=== PATIENT | female | born 1950 | race Caucasian/White ===

== ENCOUNTER 2019-10-31 20:09 | Inpatient (IN) | payer MEDICARE, OTHER ==
[~2019-10-31 20:09] MED LIST: Iopamidol-370 76% 500 ML 1 ML ONE
[2019-10-31 21:17] LABS: #Lymphocytes 1.1 thou/uL (1.20-3.40); #Monocytes 0.9 thou/uL (0.11-0.59); #Neutrophils 13.5 thou/uL (1.40-6.50); %Eosinophils 0.1 % (0.0-10.0); %Lymphocytes 6.8 % (21.0-51.0); %Monocytes 5.8 % (0.0-10.0); %Neutrophils 87.3 % (42.0-75.0); Hemoglobin 10.6 g/dL (12.0-16.0); Mean Corpuscular HGB CONC 33.1 g/dL (32.0-36.0); Mean Corpuscular Hemoglobin 28.8 pg (27.0-31.0); Mean Platelet Volume 6.4 fL (7.4-10.4); Platelet Count 673 thou/uL (130-400); RBC Distribution Width 15.7 % (11.5-14.5); Red Blood Cell (RBC) Count 3.67 mill/uL (4.20-5.40); White Blood Cell (WBC) Count 15.4 thou/uL (4.8-10.8)
[2019-10-31 21:35] LABS: ALT (SGPT) 7 U/L (8-55); AST (SGOT) 14 U/L (5-34); Albumin 2.5 g/dL (3.4-4.8); Alkaline Phosphatase 110 U/L (40-110); Anion Gap 15 mmol/L (10-20); BUN (Urea Nitrogen) 12 mg/dL (9.8-20.1); Bilirubin, Total 0.5 mg/dL (0.2-1.2); CK (CPK) 19 U/L (29-168); Calc. Creatinine Clearance 0 mL/min (70-130); Calcium 7.9 mg/dL (7.8-10.44); Carbon Dioxide 24 mmol/L (23-31); Chloride 99 mmol/L (98-107); Estimated GFR-MDRD 87; Globulin 3.2 g/dL (2.4-3.5); Glucose 100 mg/dL (83-110); Lipase 12 U/L (8-78); Magnesium 1.5 mg/dL (1.6-2.6); Protein, Total 5.7 g/dL (6.0-8.3); Sodium 135 mmol/L (136-145)
[2019-10-31 21:41] LABS: Potassium 2.6 mmol/L (3.5-5.1)
--- NOTE | 2019-10-31 21:45 | RAD ---
PORTABLE CHEST 10/31/19 PROVIDED CLINICAL HISTORY: Cough. FINDINGS: Cardiac and mediastinal silhouette is within normal limits. Conspicuous emphysematous changes are see n. Blunting of the costophrenic angles may reflect pleural fluid or could be blunting on the basis o f lung hyperinflation. Parenchymal opacities are seen in the right perihilar and right infrahilar reg ions suspicious for pneumonia. There is no evidence for pneumothorax. IMPRESSION: 1. Right perihilar and infrahilar parenchymal opacities suspicious for pneumonia. Radiographic f ollow-up is recommended. 2. Conspicuous chronic obstructive change. 3. Possible bilateral pleural fluid versus flattening of the diaphragms related to hyperinflatio n. POS: [facility]
[2019-10-31] MEDS ORDERED: Potassium Chloride 20 MEQ TAB ONE (21:52)
[2019-10-31] MEDS ORDERED: Cefepime 2 GM VIAL ONE (21:52)
[2019-10-31 21:55] LABS: CKMB 0.6 ng/mL (0-6.6)
[2019-10-31] MEDS ORDERED: Magnesium 2 GM/50 ML BAG (IN WATER) ONE (23:11)
[2019-10-31] MEDS ORDERED: Electrolyte Replacement Protoc 1 EACH EACH FS SCH (23:45)
[2019-10-31] MEDS ORDERED: Guaifenesin DM 100-10/5 ML UDCUP PO PRN (23:49)
[2019-10-31] MEDS ORDERED: Labetalol HCl 100 MG/20 ML VIAL SLOW IVP PRN (23:49)
[2019-10-31] MEDS ORDERED: hydrALAZINE 20 MG/ML VIAL SLOW IVP PRN (23:49)
[2019-10-31] MEDS ORDERED: HYDROcodone/Acetaminophen 5/325 mg Tablet PO PRN (23:49)
[2019-10-31] MEDS ORDERED: cloNIDine 0.1 MG TAB PO PRN (23:49)
[2019-10-31] MEDS ORDERED: Promethazine HCl 12.5 MG in Sodium Chloride 0.9% 50 ML IVPB PRN (23:49)
--- NOTE | 2019-10-31 23:51 | PDOC.HHP ---
Hospitalist HPI - History of Present Illness Shortness of breath, cough History of Present Illness: Patient is a 69 year old female with PMH COPD brought to ED with son who reported patient not eating well, tired, persistent cough. On my interview, patient minimizes and states she always has cough and shortness of breath, but perhaps it is a bit worse recently. She does admit to lost appetite, change in s ense of taste and smell, some wheezing which is new, nausea. She had a fall a few months ago and was in [facility]. Denies fevers chills, no recent COVID contacts, no chest pain or palpitations. She smokes half a pack a day cigarettes. In ED, tni indeterminate, EKG without acute changes, CXR concerning for R sided opacities and pneumonia w/ chronic obstructive change, possible bilateral pneural fluid. magnesium/K low, WBC 15, given broad spectrum abx and admitted for community aquired pneumonia. Hospitalist ROS - Review of Systems Constitutional: denies: fever, chills, sweats, weakness, malaise, other Eyes: denies: pain, vision change, conjunctivae inflammation, eyelid inflammation, redness, other ENT: denies: ear pain, ear discharge, nose pain, nose discharge, nose c ongestion, mouth pain, mouth swelling, throat pain, throat swelling, other Respiratory: reports: cough, shortness of breath, wheezing. denies: dry, hemoptysis, SOB with excertion, pleuritic pain, sputum, other Cardiovascular: denies: chest pain, palpitations, orthopnea, paroxysmal noc. dyspnea, edema, light headedness, other Gastrointestinal: reports: nausea. denies: vomiting, abdominal pain, diarrhea, constipation, melena, hematochezia, other Genitourinary: denies: dysuria, frequency, incontinence, hematuria, retention, other Musculoskeletal: denies: neck pain, shoulder pain, arm pain, back pain, hand pain, leg pain, foot pain, other Skin: denies: rash, lesions, yesy, bruising, other Neurological: denies: weakness, numbness, incoordination, change in speech, confusion, seizures, other All other systems reviewed; all pertinent +/- noted in HPI/Subj - Medication Medications: none Hospitalist History - Past Medical History Other Medical History: copd, anxiety - Past Surgical History Past Surgical History: reports: Tubal Ligation Other Surgical History: lumpectomy, tubal ligation - Family History Family History: reports: no pertinent history - Social History Smoking Status: Current every day smoker Alcohol: reports: None Drugs: reports: none - Exam General Appearance: NAD, awake alert Eye: PERRL, anicteric sclera ENT: normocephalic atraumatic, no oropharyngeal lesions, moist mucosa Neck: supple, symmetric, no JVD, no thyromegaly, no lymphadenopathy, no carotid bruit Heart: RRR, no murmur, no gallops, no rubs, normal peripheral pulses Respiratory: CTAB, no rales, no ronchi, normal chest expansion, no tachypnea, normal percussion, wheezes Gastrointestinal: soft, non-tender, non-distended, normal bowel sounds, no palpable masses, no hepatomegaly, no splenomegaly, no bruit Extremities: no cyanosis, no clubbing, no edema Skin: normal turgor, no lesions, no rashes Neurological: cranial nerve grossly intact, normal sensation to touch, no weakness, no focal deficits, no new deficit Musculoskeletal: normal tone, normal strength, no muscle wasting Psychiatric: normal affect, normal behavior, A&O x 3 Hospitalist Results - Labs Result Diagrams: 10/31/19 20:55 10/31/19 20:55 Lab results: WBC 15.4 thou/uL (4.8-10.8) H 10/31/19 20:55 Hgb 10.6 g/dL (12.0-16.0) L 10/31/19 20:55 Hct 31.9 % (36.0-47.0) L 10/31/19 20:55 MCV 87.0 fL (78.0-98.0) 10/31/19 20:55 Plt Count 673 thou/uL (130-400) H 10/31/19 20:55 Neutrophils % 87.3 % (42.0-75.0) H 10/31/19 20:55 Sodium 135 mmol/L (136-145) L 10/31/19 20:55 Potassium 2.6 mmol/L (3.5-5.1) L* 10/31/19 20:55 Chloride 99 mmol/L (98-107) 10/31/19 20:55 Carbon Dioxide 24 mmol/L (23-31) 10/31/19 20:55 BUN 12 mg/dL (9.8-20.1) 10/31/19 20:55 Creatinine 0.67 mg/dL (0.6-1.1) 10/31/19 20:55 Glucose 100 mg/dL (83-110) 10/31/19 20:55 Lactic Acid 1.6 mmol/L (0.5-2.2) 10/31/19 21:05 Calcium 7.9 mg/dL (7.8-10.44) 10/31/19 20:55 Total Bilirubin 0.5 mg/dL (0.2-1.2) 10/31/19 20:55 AST 14 U/L (5-34) 10/31/19 20:55 ALT 7 U/L (8-55) L 10/31/19 20:55 Alkaline Phosphatase 110 U/L (40-110) 10/31/19 20:55 Creatine Kinase 19 U/L (29-168) L 10/31/19 20:55 CK-MB (CK-2) 0.6 ng/mL (0-6.6) 10/31/19 20:55 Troponin I 0.029 ng/mL (< 0.028) H 10/31/19 20:55 B-Natriuretic Peptide 253.2 pg/mL (0-100) H 10/31/19 20:55 Serum Total Protein 5.7 g/dL (6.0-8.3) L 10/31/19 20:55 Albumin 2.5 g/dL (3.4-4.8) L 10/31/19 20:55 Lipase 12 U/L (8-78) 10/31/19 20:55 Additional comment: VITAL SIGNS Kathy Nov 01, 2019 01:56 LACEY Marc, Carolyn BP: 151/72 Pulse: 85 Resp: 19 Temp: 98.5 (Oral) Pain: 5 O2 sat: 94 on (Room Air) Time: 11/01/2019 01:56. Ed documents, labs, imaging reports reviewed Hospitalist H&P A/P - Plan Plan: Patient is a 69 year old female with PMH COPD brought to ED with son who reported patient not eating well, tired, persistent cough. # community acquired pneumonia # COPD exacerbation # sepsis secondary to pneumonia SOB, cough, wheezing, lost appetite, change in sense of taste and smell, nausea. She had a fall a few months ago and was in [facility]. Denies fevers chills, no recent COVID contacts, no chest pain or palpitations. She smokes half a pack a day cigarettes. In ED, tni indeterminate, EKG without acute changes, CXR concerning for R sided opacities and pneumonia w/ chronic obstructive change, possible bilateral pneural fluid. magnesium/K low, WBC 15, given broad spectrum abx and admitted for community aquired pneumonia. - admit to floor - azithromycin/ceftriaxone - nicotine patch - steroids - scheduled/PRN nebs # indeterminate troponin - mild, possible related to sepsis, no acute EKG findings, trend TnI # hypokalemia # hypomagnisemia - replacement parameters # DVT/GI ppx
[2019-11-01 00:43] LABS: Troponin I 0.029 ng/mL (< 0.028)
[2019-11-01 01:43] LABS: SARS-CoV-2 NAA Rapid Test Not Detected (NotDetected)
[2019-11-01] MEDS ORDERED: Ondansetron PF 4 MG/2 ML Vial ONE (02:28)
[2019-11-01] MEDS: Ondansetron PF 4 MG/2 ML Vial IVP PRN (02:31)
[2019-11-01] MEDS ORDERED: Electrolyte Replacement Protocol FS PRN (03:15)
[2019-11-01 03:20] LABS: #Lymphocytes 0.9 thou/uL (1.20-3.40); #Monocytes 0.9 thou/uL (0.11-0.59); #Neutrophils 11.3 thou/uL (1.40-6.50); %Eosinophils 0.1 % (0.0-10.0); %Lymphocytes 6.9 % (21.0-51.0); %Monocytes 6.6 % (0.0-10.0); %Neutrophils 86.4 % (42.0-75.0); Hemoglobin 9.6 g/dL (12.0-16.0); Mean Corpuscular HGB CONC 32.6 g/dL (32.0-36.0); Mean Corpuscular Hemoglobin 28.5 pg (27.0-31.0); Mean Corpuscular Volume 87.6 fL (78.0-98.0); Mean Platelet Volume 6.4 fL (7.4-10.4); Platelet Count 596 thou/uL (130-400); RBC Distribution Width 15.6 % (11.5-14.5); Red Blood Cell (RBC) Count 3.35 mill/uL (4.20-5.40)
[2019-11-01 03:41] LABS: Anion Gap 12 mmol/L (10-20); BUN (Urea Nitrogen) 11 mg/dL (9.8-20.1); Calc. Creatinine Clearance 0 mL/min (70-130); Calcium 7.4 mg/dL (7.8-10.44); Carbon Dioxide 23 mmol/L (23-31); Chloride 101 mmol/L (98-107); Estimated GFR-MDRD Greater than 90; Glucose 100 mg/dL (83-110); Magnesium 2.1 mg/dL (1.6-2.6); Sodium 133 mmol/L (136-145)
[2019-11-01 03:43] LABS: Potassium 2.6 mmol/L (3.5-5.1)
[2019-11-01 03:44] LABS: Troponin I 0.019 ng/mL (< 0.028)
[2019-11-01] MEDS ORDERED: methylPREDNISolone Sod Succ 40 MG VIAL IVP SCH (04:00)
[2019-11-01] MEDS ORDERED: methylPREDNISolone Sod Succ 40 MG VIAL ONE (04:10)
[2019-11-01] MEDS: Nicotine 7 MG PATCH TD SCH (05:00)
[2019-11-01] MEDS ORDERED: Magnesium 2 GM/50 ML 2 GM in Premix Bag 1 BAG IVPB SCH (05:00)
[2019-11-01] MEDS ORDERED: Potassium Chloride 40 MEQ in Sodium Chloride 0.9% 250 ML 250 ML IVPB SCH (06:00)
--- NOTE | 2019-11-01 06:52 | CT ---
CT BRAIN: 10/31/19 PROVIDED CLINICAL HISTORY: Altered mental status. FINDINGS: The ventricular system appears normal in size and morphology. There is no evidence for intracranial h emorrhage or mass effect. The extracranial soft tissues and osseous structures demonstrate an unremar kable CT appearance. IMPRESSION: No evidence for intracranial hemorrhage or mass effect. POS: [facility]
--- NOTE | 2019-11-01 08:14 | CT ---
CT ABDOMEN AND PELVIS WITH IV CONTRAST: DATE: 10/31/2019. PROVIDED CLINICAL HISTORY: Abdominal pain. FINDINGS: There is a partially visualized 4.3 cm mass-like density adjacent to the right heart margin. There i s a moderate pericardial effusion with apparent associated gas density within the antidependent porti on of the pericardial fluid anteriorly near the midline, only partially visualized. There are bilate ral pleural effusions which are small but greater on the right. There is a 3.4 cm left adrenal mass. Numerous hepatic hypodensities are demonstrated, some of which demonstrate findings typical for cysts , but many of which demonstrate ill-defined margins and are suspicious for metastatic lesions. There is an inhomogeneous appearance to the enhancement pattern of the kidneys bilaterally with multi ple small hypodensities that are too small to definitively characterize. There is a hypodense mass i mmediately anterior to the left renal vein measuring about 2.3 cm which may reflect an additional lef t adrenal mass or a separate retroperitoneal mass such as lymph node. The pancreas appears grossly normal, as does the spleen. There is minimal free intraperitoneal fluid, primarily within the right paracolic gutter. There is n o evidence for bowel obstruction or free air. The appendix is not distinctly identified, without sec ondary evidence for appendicitis. Extensive atherosclerotic vascular calcifications are demonstrated involving the abdominal aorta and its branches. There is ectasia of the abdominal aorta along with a focal area of calcified short seg ment chronic dissection. The osseous structures demonstrate no concerning lytic or blastic lesions. IMPRESSION: 1. Partially visualized right lung mass suspicious for malignancy. 2. Hepatic and left adrenal masses suspicious for metastatic disease. 3. Bilateral pleural fluid and pericardial fluid, the latter of which appears to be associated with a small focus of gas, the etiology and significance of which is uncertain. 4. Other chronic findings as above. 5. CT chest is recommended for complete characterization of the thoracic findings. POS: [facility]
[2019-11-01] MEDS: Famotidine 20 MG TAB PO SCH ×2 (09:12→20:37)
[2019-11-01] MEDS ORDERED: Iopamidol-370 76% 500 ML 1 ML ONE (09:30)
--- NOTE | 2019-11-01 11:48 | CT ---
CT CHEST WITH CONTRAST: Date: 11/01/2019 HISTORY: Malignancy. COMPARISON: CT abdomen/pelvis prior day. Chest radiograph prior day. FINDINGS: Right infrahilar mass measures 3.2 x 5.1 x 6.5 cm with confluent right hilar adenopathy. Index subcar inal lymph node, on axial image 32, measures 2.3 cm in short axis. Index right paratracheal lymph nod e, on axial image 21, measures 22.0 mm in short axis. The mass and adenopathy attenuates the pulmonary arteries, which are narrowed in the right upper lobe and lingula. There is a moderate right layering pleural effusion. Small left layering pleural effusi on. There is postobstructive pneumonitis in the right upper lobe posteriorly, as well as some in the right middle lobe. Severe background emphysema. No pneumothorax. Thoracic spine is without acute osseous abnormality. Sternum and manubrium are intact. Please see CT from prior day for findings below the diaphragm of the abdomen and pelvis. No acute displaced rib fracture. No left hilar adenopathy, nor supraclavicular adenopathy. IMPRESSION: 1. Large right infrahilar mass with contiguous right paratracheal, hilar, and subcarinal adenopathy without left hilar or supraclavicular adenopathy on either side appreciated. 2. Mild postobstructive pneumonitis right middle lobe and right upper lobe. 3. Small to moderate right layering malignant pleural effusion. 4. Small pericardial effusion. 5. Mild saccular ectasia of the ascending aorta measuring up to 4.1 cm in size. There is also saccul ar ectasia of the descending thoracic aorta which measures up to 3.1 cm in size. POS: [facility]
[2019-11-01 12:05] LABS: Potassium 4.5 mmol/L (3.5-5.1)
[2019-11-01] MEDS: methylPREDNISolone Sod Succ 40 MG VIAL IVP SCH ×2 (12:21→18:18)
--- NOTE | 2019-11-01 12:39 | PDOC.HOSPP ---
- Subjective Encounter Date: 11/01/19 Encounter Time: 12:00 Subjective: no sob, does not want duonebs feels better now cough with yellowish sputum, no blood - Objective Result Diagrams: 11/01/19 03:03 11/01/19 11:19 Hospitalist ROS - Medication Medications: Active Medications Generic Name Dose Route Start Last Admin Trade Name Freq PRN Reason Stop Dose Admin Albuterol/Ipratropium 3 ml 11/01/19 07:00 11/01/19 10:05 Ipratropium/Albuterol Sulfate 3 Ml Neb NEB Not Given [id number] [facility] Famotidine 20 mg 11/01/19 09:00 11/01/19 09:12 Famotidine 20 Mg Tab PO Not Given BID A[facility] Methylprednisolone Sodium Succinate 40 mg 11/01/19 12:00 11/01/19 12:21 Methylprednisolone Sod Succ 40 Mg Vial IVP Not Given Q6HR [facility] Nicotine 7 mg 11/01/19 03:30 11/01/19 05:00 Nicotine 7 Mg Patch TD Not Given Q24HR [facility] Ondansetron HCl 4 mg 10/31/19 23:49 11/01/19 02:31 Ondansetron Pf 4 Mg/2 Ml Vial IVP 4 mg Q6H PRN Administration Nausea/Vomiting use 1st - Exam General Appearance: awake alert General - other findings: cachectic Eye: PERRL, anicteric sclera ENT: normocephalic atraumatic, moist mucosa Neck: supple, no JVD Heart: RRR, no murmur Respiratory: no wheezes, no rales, rhonchi Gastrointestinal: soft, non-tender, non-distended, normal bowel sounds Extremities: no cyanosis, no edema Neurological: cranial nerve grossly intact, no focal deficits Psychiatric: A&O x 3 Hosp A/P (1) metastases Status: Acute (2) Lung mass Code(s): R91.8 - OTHER NONSPECIFIC ABNORMAL FINDING OF LUNG FIELD Status: Acute (3) post obstructive pna Status: Acute (4) COPD (chronic obstructive pulmonary disease) Status: Chronic Qualifiers: COPD type: chronic bronchitis (5) Tobacco abuse Code(s): Z72.0 - TOBACCO USE Status: Chronic (6) Anxiety disorder Code(s): F41.9 - ANXIETY DISORDER, UNSPECIFIED Status: Chronic Qualifiers: Anxiety disorder type: generalized anxiety disorder Qualified Code(s): F41.1 - Generalized anxiety disorder (7) Chronic anemia Code(s): D64.9 - ANEMIA, UNSPECIFIED Status: Chronic - Plan is on duonebs, ceftriaxone and zithromax, steroids has multiple mets to liver, adrenal with large right lung mass at the hilum with mediastinal lymph nodes as well has mod pl effusion await pulm opinion, ?bronch or tap effusion for diagnosis covid 19 -ve appears cachectic, not sure if she is a candidate for chemoradiation, is wheel chair bound due to severe knee OA. hemostable
[2019-11-01] MEDS ORDERED: Lidocaine 4% PF 5 ML AMP NEB SCH (17:30)
[2019-11-01] MEDS: Sodium Chloride 0.9% 1,000 ML IV SCH (18:18)
[2019-11-01] MEDS: cefTRIAXone\\ROCEPHIN 1 GM in Sodium Chloride 0.9% 100 ML IVPB SCH (20:39)
[2019-11-01] MEDS: Enoxaparin Sodium 40 MG/0.4 ML SYRINGE SC SCH (20:39)
[2019-11-01] MEDS ORDERED: Azithromycin 500 MG in Syringe 0 ML IVPB SCH (21:00)
--- NOTE | 2019-11-01 21:04 | CON ---
DATE OF CONSULTATION: HISTORY OF PRESENT ILLNESS: Marty Shea is a 69-year-old female, long-time smoker, who is from the [facility], comes into the hospital with marked weight loss, weakness, cough. During the course of her workup, she was found to have a large right hilar mass with extensive mediastinal adenopathy. She says she is unable to walk because of significant arthritis. Has lost considerable weight. Denies any hemoptysis or fever or chills. PAST MEDICAL HISTORY: Otherwise, pertinent for chronic lung disease. PREVIOUS SURGERIES: Include tubal ligation. SOCIAL HISTORY: Unremarkable. CHRONIC MEDICATIONS: None known. ALLERGIES: UNKNOWN. REVIEW OF SYSTEMS: Otherwise, negative. PHYSICAL EXAMINATION: GENERAL: She is cachectic. VITAL SIGNS: Temperature 98, pulse 80, respiratory rate 18, saturations 90% on room air, blood pressure 141/61. CHEST: Rhonchi, right greater than left. CARDIAC: Normal S1, S2. No gallops. ABDOMEN: Soft. LABORATORY DATA: White count 86830, H and H are 9 and 36, platelet count 596. X-ray of chest shows a right hilar mass. CT chest confirms bilateral pleural effusion, extensive mediastinal right hilar mass, subcarinal adenopathy, postobstructive changes. CT pelvis and abdomen shows hepatic and left adrenal masses suspicious of metastatic disease and pleural effusion. IMPRESSION: 1. Metastatic bronchogenic carcinoma, extensive. 2. Marked cachexia. 3. Chronic obstructive pulmonary disease. 4. Severe arthritis. PLAN: I discussed with the patient regarding bronchoscopy for diagnostic purposes. It is unclear whether she wants to have a diagnosis made. She told not to discuss with her son. ID in the meantime, antibiotics, neb treatments, steroids. Prognosis is grave. We need to call Palliative Care to see the patient. Consultation note, 70 minutes, 50% direct patient care. Job ID: [id number]
[2019-11-01] MEDS: Azithromycin 500 MG in Sodium Chloride 0.9% 250 ML 250 ML IVPB SCH (22:29)
[2019-11-02] MEDS: methylPREDNISolone Sod Succ 40 MG VIAL IVP SCH ×4 (00:46→18:41)
[2019-11-02] MEDS: Nicotine 7 MG PATCH TD SCH (01:45)
[2019-11-02] MEDS ORDERED: Lidocaine 2% Jelly 5 ML TUBE ONE (09:53)
[2019-11-02] MEDS ORDERED: Fentanyl 100 MCG/2 ML VIAL ONE ×2 (09:53)
[2019-11-02] MEDS ORDERED: EPINEPHrine 1 MG/10 ML Abboject SYRINGE ONE (10:44)
[2019-11-02] MEDS ORDERED: Ondansetron HCl/PF 4 MG/2 ML Vial IVP PRN (11:08)
[2019-11-02] MEDS ORDERED: Promethazine HCl 25 MG/ML VIAL IM PRN (11:08)
[2019-11-02] MEDS ORDERED: Promethazine HCl 25 MG/ML VIAL SLOW IVP PRN (11:08)
--- NOTE | 2019-11-02 12:03 | PDOC.HOSPP ---
- Subjective Encounter Date: 11/02/19 Encounter Time: 12:00 Subjective: sob is better no new complaints - Objective Vital Signs & Weight: Vital Signs (12 hours) Temp Pulse Resp BP Pulse Ox 11/02/19 08:00 97.7 F 70 20 139/60 97 11/02/19 03:36 97.9 F 73 16 120/56 L 96 Weight Weight 83 lb I&O: 11/01/19 11/02/19 11/03/19 06:59 06:59 06:59 Intake Total 1550 Balance 1550 Result Diagrams: 11/01/19 03:03 11/01/19 11:19 Hospitalist ROS - Medication Medications: Active Medications Generic Name Dose Route Start Last Admin Trade Name Freq PRN Reason Stop Dose Admin Albuterol/Ipratropium 3 ml 11/01/19 15:00 11/02/19 10:10 Ipratropium/Albuterol Sulfate 3 Ml Neb NEB Not Given [id number] [facility] Enoxaparin Sodium 40 mg 11/01/19 21:00 11/01/19 20:39 Enoxaparin Sodium 40 Mg/0.4 Ml Syringe SC 40 mg 2100 ANAM Administration Famotidine 20 mg 11/01/19 09:00 11/01/19 20:37 Famotidine 20 Mg Tab PO 20 mg BID ANAM Administration Ceftriaxone Sodium 1 gm/ 100 mls @ 200 mls/hr 11/01/19 21:00 11/01/19 20:39 Sodium Chloride IVPB 100 mls HS ANAM Administration Azithromycin 500 mg/ Sodium 250 mls @ 250 mls/hr 11/01/19 21:00 11/01/19 22:29 Chloride IVPB 250 mls Q24HR [facility] Administration Sodium Chloride 1,000 mls @ 50 mls/hr 11/01/19 17:30 11/01/19 18:18 Normal Saline 0.9% IV 1,000 mls .Q20H ANAM Administration Methylprednisolone Sodium Succinate 40 mg 11/01/19 12:00 11/02/19 05:31 Methylprednisolone Sod Succ 40 Mg Vial IVP 40 mg Q6HR [facility] Administration Nicotine 7 mg 11/01/19 03:30 11/02/19 01:45 Nicotine 7 Mg Patch TD Not Given Q24HR [facility] Ondansetron HCl 4 mg 10/31/19 23:49 11/01/19 02:31 Ondansetron Pf 4 Mg/2 Ml Vial IVP 4 mg Q6H PRN Administration Nausea/Vomiting use 1st - Exam General Appearance: ill appearing Eye: PERRL, anicteric sclera ENT: no oropharyngeal lesions, dry oral mucosa Neck: supple, no JVD Heart: RRR, no murmur Respiratory: no wheezes, no rales, rhonchi Gastrointestinal: soft, non-tender, non-distended, normal bowel sounds Extremities: no cyanosis, no edema Neurological: cranial nerve grossly intact, no focal deficits Hosp A/P (1) metastases Status: Acute (2) Lung mass Code(s): R91.8 - OTHER NONSPECIFIC ABNORMAL FINDING OF LUNG FIELD Status: Acute (3) post obstructive pna Status: Acute (4) COPD (chronic obstructive pulmonary disease) Status: Chronic Qualifiers: COPD type: chronic bronchitis (5) Tobacco abuse Code(s): Z72.0 - TOBACCO USE Status: Chronic (6) Anxiety disorder Code(s): F41.9 - ANXIETY DISORDER, UNSPECIFIED Status: Chronic Qualifiers: Anxiety disorder type: generalized anxiety disorder Qualified Code(s): F41.1 - Generalized anxiety disorder (7) Chronic anemia Code(s): D64.9 - ANEMIA, UNSPECIFIED Status: Chronic - Plan is on duonebs, ceftriaxone and zithromax, steroids has multiple mets to liver, adrenal with large right lung mass at the hilum with mediastinal lymph nodes as well has mod pl effusion s/p bronch with biopsy done today, await histopath covid 19 -ve appears cachectic, not sure if she is a candidate for chemoradiation, is wheel chair bound due to severe knee OA. hemostable
[2019-11-02] MEDS: Famotidine 20 MG TAB PO SCH ×2 (12:18→20:27)
[2019-11-02] MEDS ORDERED: Glycopyrrolate 0.2 MG/ML 5 ML SYRINGE ONE (13:44)
[2019-11-02] MEDS ORDERED: Dexamethasone 20 MG/5 ML VIAL ONE (13:44)
[2019-11-02] MEDS ORDERED: Ondansetron PF 4 MG/2 ML Vial ONE (13:44)
[2019-11-02] MEDS ORDERED: PHENYLEPHRINE-NS 100 MCG/ML 10 ML SYRINGE ONE (13:44)
[2019-11-02] MEDS ORDERED: PROPOFOL 200 MG/20 ML VIAL ONE (13:44)
[2019-11-02] MEDS ORDERED: Rocuronium Bromide 10 MG/ML (10ML VIAL) ONE (13:44)
[2019-11-02] MEDS ORDERED: EPHEDRINE 25 MG/5 ML SYRINGE ONE (13:44)
[2019-11-02] MEDS ORDERED: Lidocaine 1% PF 5 ML VIAL ONE (13:44)
--- NOTE | 2019-11-02 16:27 | PDOC.PALCO ---
Palliative Care Consult - Consult Details Requesting Physician: Dr Calix, confirmed with Dr Lu Reason for Consult: goals of care, advance directives assistance, assistance with communication prognosis/disease, family support Family Members Present: Patient son Mehran - Pertinent HPI Ms Shea is a 69 year old female who recently transitioned to the [facility] from a life time [place] resident secondary to declining functional status to live close to one of her three children, Mehran. She lives independently. Her son reports patient has been primarily bedbound for the past several weeks /does utilize wheelchair but with decrease in frequency and refusing to seek care with a physician. He and his take her meals and assist with personal care, patient reports she is incontinent. Secondary to continued decline, weight loss, increase in cough and weakness Mehran called EMS for transfer of his mother to the emergency room for evaluation. Large right hilar mass with extensive mediastinal adenopathy was noted during workup in emergency room. Daily smoker, denies hemoptysis, chills, fever. Admitted for bronchoscopy and further evaluation. - Pertinent PMH COPD, anxiety - Social History Smoking Status: Current every day smoker Smoking: greater than 1 pack/day Alcohol Use: none Drug Use History: none Living Situation: independent - Medications MAR Reviewed: Yes - Allergies Allergies/Adverse Reactions: Allergies Allergy/AdvReac Type Severity Reaction Status Date / Time No Known Allergies Allergy Unverified 11/01/19 02:20 - Subjective Complains of sore throat (Bronch today), weakness, wet cough. - ROS Constitutional: alert, weakness ENT: alteration in dentition, throat irritation Respiratory: productive cough, shortness of breath, shortness of breath with extertion Cardiology: other (Denies palpitations, edema, chest pain. ) Gastrointestinal: other (Denies nausea, vomiting) Musculoskeletal: arthritis/arthralgias, leg pain Skin: other (Negative for rash, puritis ) - Objective Vital Signs: Vital Signs - Most Recent Temp Pulse Resp BP Pulse Ox 97 F L 83 18 146/67 H 92 L 11/02/19 12:05 11/02/19 12:05 11/02/19 12:05 11/02/19 12:05 11/02/19 12:05 Palliative Performance Scale: 30 - Physical Exam Constitutional: cachectic, emaciated, ill appearing HEENT: EOMI, moist MMs, poor dentition Respiratory: labored respirations Deviation from normal: adventicious, audible at bedside. Cardiovascular: RRR Gastrointestinal: incontinent Genitourinary: incontinent Musculoskeletal: no cyanosis, no clubbing, diffuse muscle atrophy Neurology: moves all 4 limbs, no focal deficits Skin: cap refill <2 seconds, fragile Deviation from normal: poor turgor Psychiatric: A&O x 3 - Problem List (1) Declining functional status Code(s): R53.81 - OTHER MALAISE Current Visit: Yes Status: Acute (2) Palliative care encounter Code(s): Z51.5 - ENCOUNTER FOR PALLIATIVE CARE Current Visit: Yes Status: Acute (3) Lung mass Code(s): R91.8 - OTHER NONSPECIFIC ABNORMAL FINDING OF LUNG FIELD Current Visit: Yes Status: Acute (4) COPD (chronic obstructive pulmonary disease) Current Visit: Yes Status: Chronic Qualifiers: COPD type: chronic bronchitis (5) Chronic anemia Code(s): D64.9 - ANEMIA, UNSPECIFIED Current Visit: Yes Status: Chronic (6) Tobacco abuse Code(s): Z72.0 - TOBACCO USE Current Visit: Yes Status: Chronic - Plan/Recommendations Plan: Short life review with patient. She was born and raised in [place], lived there until recently when she transitioned to be close to her son. Has three children, Mehran local son, a daughter in [place] and another son whose location is unknown. 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 Enjoyed working in her yard. She and her son have a strained relationship. She wishes to remain independent, he state because of work schedule that they are not able to care for Ms. Shea in the home setting. Patient is waiting to get the path report from the bronch today. We discussed regardless if she elected treatment for cancer, or not either will necessitate a "safe" discharge plan to home setting. She does not have an official MPOA, we will have Fiona Downey follow up Tuesday to complete at patient request. Palliative Care will continue to facilitate conversations with patient and her son as her Goal of Care is further identified after official pathology report is obtained. [75] minutes spent on this encounter with >50% of the time in counseling and coordination of care. Thank you for this very appropriate consult.
[2019-11-02] MEDS: Acetaminophen 325 MG TAB PO PRN (16:38)
[2019-11-02] MEDS: Sodium Chloride 0.9% 1,000 ML IV SCH (16:39)
[2019-11-02] MEDS: Enoxaparin Sodium 40 MG/0.4 ML SYRINGE SC SCH (20:27)
[2019-11-02] MEDS: cefTRIAXone\\ROCEPHIN 1 GM in Sodium Chloride 0.9% 100 ML IVPB SCH (20:27)
[2019-11-02] MEDS: Azithromycin 500 MG in Sodium Chloride 0.9% 250 ML 250 ML IVPB SCH (22:18)
[2019-11-03] MEDS: methylPREDNISolone Sod Succ 40 MG VIAL IVP SCH ×5 (01:07→22:12)
[2019-11-03] MEDS: Acetaminophen 325 MG TAB PO PRN ×2 (03:48→07:29)
[2019-11-03] MEDS: Nicotine 7 MG PATCH TD SCH (04:12)
[2019-11-03] MEDS: Ipratropium/Albuterol Sulfate 4 GM AER IH PRN ×3 (05:53→21:46)
[2019-11-03] MEDS: Famotidine 20 MG TAB PO SCH ×2 (07:28→20:17)
[2019-11-03] MEDS: Sodium Chloride 0.9% 1,000 ML IV SCH (07:34)
--- NOTE | 2019-11-03 09:45 | PDOC.HOSPP ---
- Subjective Encounter Date: 11/03/19 Encounter Time: 09:43 Subjective: Ms. Shea was seen today in follow-up of Lung mass and Pneumonia and COPD exacerbation. She notes some cough and dyspea, otherwise ok. - Objective Vital Signs & Weight: Vital Signs (12 hours) Temp Pulse Resp BP Pulse Ox 11/03/19 08:00 93 L 11/03/19 07:25 98.7 F 83 20 171/77 H 93 L 11/03/19 04:00 98.1 F 84 20 151/72 H 95 11/03/19 01:18 98 11/03/19 01:08 98 Weight Admit Weight 85 lb Weight 84 lb I&O: 11/02/19 11/03/19 11/04/19 06:59 06:59 06:59 Intake Total 1550 2212 Balance 1550 2212 Result Diagrams: 11/01/19 03:03 11/01/19 11:19 Hospitalist ROS - Medication Medications: Active Medications Generic Name Dose Route Start Last Admin Trade Name Freq PRN Reason Stop Dose Admin Acetaminophen 650 mg 10/31/19 23:49 11/03/19 07:29 Acetaminophen 325 Mg Tab PO 325 mg Q4H PRN Administration Headache/Fever/Mild Pain (1-3) Albuterol/Ipratropium 0 gm 11/02/19 16:18 11/03/19 05:53 Ipratropium/Albuterol Sulfate 4 Gm Aer IH 2 puff Q4H PRN Administration SOB &/or Wheezing Enoxaparin Sodium 40 mg 11/01/19 21:00 11/02/19 20:27 Enoxaparin Sodium 40 Mg/0.4 Ml Syringe SC 40 mg 2100 ANAM Administration Famotidine 20 mg 11/01/19 09:00 11/03/19 07:28 Famotidine 20 Mg Tab PO 20 mg BID ANAM Administration Ceftriaxone Sodium 1 gm/ 100 mls @ 200 mls/hr 11/01/19 21:00 11/02/19 20:27 Sodium Chloride IVPB 100 mls HS ANAM Administration Azithromycin 500 mg/ Sodium 250 mls @ 250 mls/hr 11/01/19 21:00 11/02/19 22:18 Chloride IVPB 250 mls Q24HR ANAM Administration Sodium Chloride 1,000 mls @ 50 mls/hr 11/01/19 17:30 11/03/19 07:34 Normal Saline 0.9% IV 1,000 mls .Q20H ANAM Administration Methylprednisolone Sodium Succinate 40 mg 11/01/19 12:00 11/03/19 05:32 Methylprednisolone Sod Succ 40 Mg Vial IVP 40 mg Q6HR ANAM Administration Nicotine 7 mg 11/01/19 03:30 11/03/19 04:12 Nicotine 7 Mg Patch TD Not Given Q24HR ANAM Ondansetron HCl 4 mg 10/31/19 23:49 11/01/19 02:31 Ondansetron Pf 4 Mg/2 Ml Vial IVP 4 mg Q6H PRN Administration Nausea/Vomiting use 1st - Exam Eye: PERRL, anicteric sclera Heart: RRR, no murmur, no gallops, no rubs, normal peripheral pulses Respiratory: rales (rales at both bases, as well as some wheezing), wheezes Extremities: no cyanosis, no edema Hosp A/P (1) Acute and chronic respiratory failure Code(s): J96.20 - ACUTE AND CHR RESP FAILURE, UNSP W HYPOXIA OR HYPERCAPNIA Status: Acute (2) COPD exacerbation Code(s): J44.1 - CHRONIC OBSTRUCTIVE PULMONARY DISEASE W (ACUTE) EXACERBATION Status: Acute (3) Lung mass Code(s): R91.8 - OTHER NONSPECIFIC ABNORMAL FINDING OF LUNG FIELD Status: Acute (4) post obstructive pna Status: Acute (5) Tobacco abuse Code(s): Z72.0 - TOBACCO USE Status: Chronic (6) Hypertension Code(s): I10 - ESSENTIAL (PRIMARY) HYPERTENSION Status: Acute - Plan * Acute on chronic respiratory failure due to community acquired pneumonia- stable * Continue Azithromycin and Rocephin, steroids and Duonebs * Lung Mass- awaiting pathology * Tobacco abuse- she has been counselled on the need to quite * HTN- her blood pressure is elevated- will add Amlodipine * She is concerned that she will be too weak to live on her own- when I tried to discuss her concerns in more detail she said " I don't want to talk about it now" * Will consult Case Management to aid in discharge planning
[2019-11-03] MEDS: Amlodipine 5 MG TAB PO SCH (11:58)
--- NOTE | 2019-11-03 13:58 | PRG ---
DATE OF SERVICE: 11/03/2019 SUBJECTIVE: The patient is stable overnight. OBJECTIVE: VITAL SIGNS: She is afebrile. Heart rate is 91, blood pressure is 181/80, respiratory rate 22, oximetry is 93% on 3 L cannula. LUNGS: Clear. HEART: Regular rhythm. ABDOMEN: Soft. She had bronchoscopy yesterday showing significant endobronchial disease. It was biopsied. Results are not back yet. IMPRESSION: Bronchogenic carcinoma. She wanted to know why she could not find out today what her results . I had explained to her multiple times it takes several days to get biopsy results back, but she kept asking me the same questions. Overall, she appears to be stable from medical standpoint. All of her cultures are negative so far. She could be switched to p.o. antibiotics. Her steroid dosing will be decreased. This may in theory contribute to her mild encephalopathy. We will continue to follow. Job ID: [id number]
[2019-11-03] MEDS: Azithromycin 500 MG in Sodium Chloride 0.9% 250 ML 250 ML IVPB SCH (20:18)
[2019-11-03] MEDS: cefTRIAXone\\ROCEPHIN 1 GM in Sodium Chloride 0.9% 100 ML IVPB SCH (20:18)
[2019-11-03] MEDS: Enoxaparin Sodium 40 MG/0.4 ML SYRINGE SC SCH (20:18)
[2019-11-04] MEDS: Ondansetron PF 4 MG/2 ML Vial IVP PRN (01:02)
[2019-11-04] MEDS: Sodium Chloride 0.9% 1,000 ML IV SCH (01:09)
[2019-11-04] MEDS: Ipratropium/Albuterol Sulfate 4 GM AER IH PRN ×3 (01:24→18:22)
[2019-11-04] MEDS: Nicotine 7 MG PATCH TD SCH ×2 (03:30→19:20)
[2019-11-04] MEDS: methylPREDNISolone Sod Succ 40 MG VIAL IVP SCH ×3 (05:35→21:15)
--- NOTE | 2019-11-04 07:53 | OP ---
DATE OF PROCEDURE: 11/02/2019 PROCEDURE PERFORMED: Bronchoscopy with biopsy. INDICATIONS: 1. Right middle lobe mass. 2. Rule out bronchogenic carcinoma. POSTBRONCHOSCOPY DIAGNOSES: 1. Right middle lobe mass. 2. Rule out bronchogenic carcinoma. DESCRIPTION OF PROCEDURE: After informed consent, the patient was put under general anesthesia by Anesthesia. A #8 endotracheal tube was used to intubate the patient. A flexible video Olympus bronchoscope was then passed using an adapter on the endotracheal tube. Her vital signs were stable. Sats were 100%. Entering the distal trachea, riky was sharp and normal. Right lung inspected initially. Right upper lobe was unremarkable. Right bronchus intermedius normal. Entering the right middle lobe, the medial segment was occluded with nodular friable mucosa. The lateral segment appeared to be normal, though this was somewhat thickened. The rest of the right lower lobe basilar segment was normal. The left lung inspected thereafter. Left upper and left lower lobes were unremarkable. The right middle lobe was then lavaged with normal saline with a total of 50 mL. Thereafter, brushings and biopsies from the abnormal mucosa corresponding to the middle lobe area was done. There was some brisk bleeding, which was controlled with administration of epinephrine, a total of 12 mL of 1:10,000. The washing was sent for AFB smear and culture, fungal smear and culture, routine Gram stain and C and S. The biopsies were sent to Histopathology. Brushings were sent for cytology. The patient otherwise tolerated the procedure well. Anesthesia will be extubating the patient, she will go to the room. We will discuss with the family regarding the path report when it is available in the next several days. In the meantime, we are going to continue antibiotics and steroids. Job ID: [id number]
[2019-11-04] MEDS: Famotidine 20 MG TAB PO SCH ×2 (08:20→21:15)
--- NOTE | 2019-11-04 10:47 | PDOC.HOSPP ---
- Subjective Encounter Date: 11/04/19 Encounter Time: 10:45 Subjective: Ms. Shea was seen today in follow-up of respiratory failure and lung mass. She notes some dyspnea, but she says it is no different than what she normally experiences. - Objective Vital Signs & Weight: Vital Signs (12 hours) Temp Pulse Resp BP Pulse Ox 11/04/19 10:29 92 20 11/04/19 08:23 96 11/04/19 08:18 148/68 H 11/04/19 07:10 97.2 F L 88 16 161/73 H 92 L 11/04/19 05:30 98.5 F 84 18 142/67 H 95 11/04/19 00:17 94 L Weight Admit Weight 85 lb Weight 96 lb 8 oz I&O: 11/03/19 11/04/19 11/05/19 06:59 06:59 06:59 Intake Total 2212 1120 Balance 2212 1120 Result Diagrams: 11/01/19 03:03 11/01/19 11:19 Hospitalist ROS - Medication Medications: Active Medications Generic Name Dose Route Start Last Admin Trade Name Freq PRN Reason Stop Dose Admin Acetaminophen 650 mg 10/31/19 23:49 11/03/19 07:29 Acetaminophen 325 Mg Tab PO 325 mg Q4H PRN Administration Headache/Fever/Mild Pain (1-3) Albuterol/Ipratropium 3 ml 11/01/19 17:30 11/04/19 10:29 Ipratropium/Albuterol Sulfate 3 Ml Neb NEB 3 ml WILLCALL ANAM Administration Albuterol/Ipratropium 0 gm 11/02/19 16:18 11/04/19 01:24 Ipratropium/Albuterol Sulfate 4 Gm Aer IH 2 puff Q4H PRN Administration SOB &/or Wheezing Amlodipine Besylate 5 mg 11/03/19 12:00 11/03/19 11:58 Amlodipine 5 Mg Tab PO 5 mg 1200 ANAM Administration Enoxaparin Sodium 40 mg 11/01/19 21:00 11/03/19 20:18 Enoxaparin Sodium 40 Mg/0.4 Ml Syringe SC 40 mg 2100 ANAM Administration Famotidine 20 mg 11/01/19 09:00 11/04/19 08:20 Famotidine 20 Mg Tab PO 20 mg BID ANAM Administration Ceftriaxone Sodium 1 gm/ 100 mls @ 200 mls/hr 11/01/19 21:00 11/03/19 20:18 Sodium Chloride IVPB 100 mls HS ANAM Administration Azithromycin 500 mg/ Sodium 250 mls @ 250 mls/hr 11/01/19 21:00 11/03/19 20:18 Chloride IVPB 250 mls Q24HR ANAM Administration Sodium Chloride 1,000 mls @ 50 mls/hr 11/01/19 17:30 11/04/19 01:09 Normal Saline 0.9% IV 1,000 mls .Q20H ANAM Administration Methylprednisolone Sodium Succinate 20 mg 11/03/19 14:00 11/04/19 05:35 Methylprednisolone Sod Succ 40 Mg Vial IVP 20 mg Q8HR ANAM Administration Nicotine 7 mg 11/01/19 03:30 11/04/19 03:30 Nicotine 7 Mg Patch TD Not Given Q24HR ANAM Ondansetron HCl 4 mg 10/31/19 23:49 11/04/19 01:02 Ondansetron Pf 4 Mg/2 Ml Vial IVP 4 mg Q6H PRN Administration Nausea/Vomiting use 1st - Exam Eye: PERRL, anicteric sclera Heart: RRR, no murmur, no gallops, no rubs, normal peripheral pulses Respiratory: rhonchi, wheezes (+ wheezing and rhonchi bilaterally) Gastrointestinal: soft, non-tender, non-distended, normal bowel sounds, no palpable masses, no hepatomegaly Extremities: no cyanosis, no edema Hosp A/P (1) Acute and chronic respiratory failure Code(s): J96.20 - ACUTE AND CHR RESP FAILURE, UNSP W HYPOXIA OR HYPERCAPNIA Status: Acute (2) COPD exacerbation Code(s): J44.1 - CHRONIC OBSTRUCTIVE PULMONARY DISEASE W (ACUTE) EXACERBATION Status: Acute (3) Lung mass Code(s): R91.8 - OTHER NONSPECIFIC ABNORMAL FINDING OF LUNG FIELD Status: Acute (4) post obstructive pna Status: Acute (5) Tobacco abuse Code(s): Z72.0 - TOBACCO USE Status: Chronic (6) Hypertension Code(s): I10 - ESSENTIAL (PRIMARY) HYPERTENSION Status: Acute - Plan * Acute on chronic respiratory failure due to community acquired pneumonia- stable * Continue Azithromycin and Rocephin, steroids and Duonebs * Her lungs sound a bit "wet"- will discontinue the IV fluids * Lung Mass- awaiting pathology * Tobacco abuse-ongoing * HTN- improved some- will continue Amlodipine
[2019-11-04] MEDS: Amlodipine 5 MG TAB PO SCH (11:44)
[2019-11-04] MEDS: Acetaminophen 325 MG TAB PO PRN (13:03)
[2019-11-04] MEDS ORDERED: Magnesium 2 GM/50 ML 2 GM in Premix Bag 1 BAG IVPB SCH (14:15)
--- NOTE | 2019-11-04 14:20 | PRG ---
DATE OF SERVICE: 11/04/2019 SUBJECTIVE: Ms. Shea is in no distress. She has no complaints. OBJECTIVE: VITAL SIGNS: She is afebrile, heart rate is 94, respiratory rate is 22, oximetry is 96% on 3 L, and blood pressure 160/72. LUNGS: Clear. IMPRESSION: 1. Probable bronchogenic carcinoma, waiting for biopsy results. 2. Chronic obstructive pulmonary disease, clinically stable. Job ID: [id number]
[2019-11-04] MEDS: Enoxaparin Sodium 40 MG/0.4 ML SYRINGE SC SCH (21:15)
[2019-11-04] MEDS: Cefdinir 300 MG CAP PO SCH (21:15)
[2019-11-05] MEDS: Ipratropium/Albuterol Sulfate 4 GM AER IH PRN ×3 (01:42→22:22)
[2019-11-05 04:20] LABS: #Lymphocytes 0.6 thou/uL (1.20-3.40); #Monocytes 0.8 thou/uL (0.11-0.59); #Neutrophils 13.6 thou/uL (1.40-6.50); %Basophils 0.1 % (0.0-1.0); %Eosinophils 0.1 % (0.0-10.0); %Lymphocytes 4.2 % (21.0-51.0); %Neutrophils 90.6 % (42.0-75.0); Hemoglobin 9.5 g/dL (12.0-16.0); Mean Corpuscular HGB CONC 31.3 g/dL (32.0-36.0); Mean Corpuscular Hemoglobin 27.8 pg (27.0-31.0); Mean Corpuscular Volume 88.8 fL (78.0-98.0); Mean Platelet Volume 6.8 fL (7.4-10.4); Platelet Count 648 thou/uL (130-400); RBC Distribution Width 15.6 % (11.5-14.5); Red Blood Cell (RBC) Count 3.41 mill/uL (4.20-5.40)
[2019-11-05 04:38] LABS: Anion Gap 11 mmol/L (10-20); BUN (Urea Nitrogen) 20 mg/dL (9.8-20.1); Calc. Creatinine Clearance 52 mL/min (70-130); Carbon Dioxide 22 mmol/L (23-31); Chloride 105 mmol/L (98-107); Estimated GFR-MDRD 85; Glucose 129 mg/dL (83-110); Sodium 134 mmol/L (136-145)
[2019-11-05] MEDS: methylPREDNISolone Sod Succ 40 MG VIAL IVP SCH ×4 (05:35→20:37)
--- NOTE | 2019-11-05 09:38 | PRG ---
DATE OF SERVICE: Ms. Shea is afebrile. Heart rate is in 80s, respiratory rates in the teens, oximetry is 99, blood pressure 150/86. We are still awaiting pathology. We will continue with same pending pathology. Job ID: [id number]
[2019-11-05 13:13] LABS: Fungus Stain Final report (.)
--- NOTE | 2019-11-05 14:15 | PDOC.HOSPP ---
- Subjective Encounter Date: 11/05/19 Encounter Time: 14:13 Subjective: Ms. Shea was seen today in follow-up of lung mass and respiratory failure. She says she is feeling a bit short of breath. She tells me "she does not feel like talking to me now" this despite the nurses report earlier that she only wanted to talk with her doctors. - Objective Vital Signs & Weight: Vital Signs (12 hours) Temp Pulse Resp BP Pulse Ox 11/05/19 11:20 98.4 F 85 16 142/66 H 100 11/05/19 07:36 98.2 F 89 18 150/86 H 99 11/05/19 05:30 97.6 F 82 20 132/86 95 Weight Admit Weight 85 lb Weight 95 lb 9.6 oz I&O: 11/04/19 11/05/19 11/06/19 06:59 06:59 06:59 Intake Total 1120 1670 Balance 1120 1670 Result Diagrams: 11/05/19 03:52 11/05/19 03:52 Hospitalist ROS - Medication Medications: Active Medications Generic Name Dose Route Start Last Admin Trade Name Freq PRN Reason Stop Dose Admin Acetaminophen 650 mg 10/31/19 23:49 11/04/19 13:03 Acetaminophen 325 Mg Tab PO 325 mg Q4H PRN Administration Headache/Fever/Mild Pain (1-3) Albuterol/Ipratropium 3 ml 11/01/19 17:30 11/04/19 10:29 Ipratropium/Albuterol Sulfate 3 Ml Neb NEB 3 ml WILLCALL ANAM Administration Albuterol/Ipratropium 0 gm 11/02/19 16:18 11/05/19 01:42 Ipratropium/Albuterol Sulfate 4 Gm Aer IH 1 puff Q4H PRN Administration SOB &/or Wheezing Amlodipine Besylate 5 mg 11/03/19 12:00 11/04/19 11:44 Amlodipine 5 Mg Tab PO 5 mg 1200 ANAM Administration Cefdinir 300 mg 11/04/19 21:00 11/04/19 21:15 Cefdinir 300 Mg Cap PO 300 mg BID ANAM Administration Enoxaparin Sodium 40 mg 11/01/19 21:00 11/04/19 21:15 Enoxaparin Sodium 40 Mg/0.4 Ml Syringe SC 40 mg 2100 ANAM Administration Famotidine 20 mg 11/01/19 09:00 11/04/19 21:15 Famotidine 20 Mg Tab PO 20 mg BID ANAM Administration Methylprednisolone Sodium Succinate 20 mg 11/03/19 14:00 11/05/19 05:35 Methylprednisolone Sod Succ 40 Mg Vial IVP 20 mg Q8HR ANAM Administration Nicotine 7 mg 11/01/19 03:30 11/04/19 19:20 Nicotine 7 Mg Patch TD Not Given Q24HR [facility] Ondansetron HCl 4 mg 10/31/19 23:49 11/04/19 01:02 Ondansetron Pf 4 Mg/2 Ml Vial IVP 4 mg Q6H PRN Administration Nausea/Vomiting use 1st - Exam Eye: PERRL, anicteric sclera ENT: normocephalic atraumatic, no oropharyngeal lesions Heart: RRR, no murmur, no gallops, no rubs, normal peripheral pulses Respiratory: CTAB (+ with the exception of a slight wheeze.) Gastrointestinal: soft, non-tender, non-distended, normal bowel sounds, no palpable masses, no hepatomegaly Hosp A/P (1) Acute and chronic respiratory failure Code(s): J96.20 - ACUTE AND CHR RESP FAILURE, UNSP W HYPOXIA OR HYPERCAPNIA Status: Acute (2) COPD exacerbation Code(s): J44.1 - CHRONIC OBSTRUCTIVE PULMONARY DISEASE W (ACUTE) EXACERBATION Status: Acute (3) Lung mass Code(s): R91.8 - OTHER NONSPECIFIC ABNORMAL FINDING OF LUNG FIELD Status: Acute (4) post obstructive pna Status: Acute (5) Tobacco abuse Code(s): Z72.0 - TOBACCO USE Status: Chronic (6) Hypertension Code(s): I10 - ESSENTIAL (PRIMARY) HYPERTENSION Status: Acute - Plan * Acute on chronic respiratory failure due to community acquired pneumonia- stable * consider transitioning to oral antibiotic- Omnicef * Her lungs sound better today * Lung Mass- still awaiting pathology * HTN- continue Amlodipine
[2019-11-05] MEDS: Famotidine 20 MG TAB PO SCH ×2 (15:38→20:33)
[2019-11-05] MEDS: Cefdinir 300 MG CAP PO SCH ×2 (15:38→20:33)
[2019-11-05] MEDS: Amlodipine 5 MG TAB PO SCH (16:38)
[2019-11-05] MEDS: Acetaminophen 325 MG TAB PO PRN (16:56)
[2019-11-05] MEDS: Enoxaparin Sodium 40 MG/0.4 ML SYRINGE SC SCH ×2 (20:34→20:36)
[2019-11-06] MEDS: Nicotine 7 MG PATCH TD SCH (01:08)
[2019-11-06] MEDS: Ipratropium/Albuterol Sulfate 4 GM AER IH PRN (02:54)
[2019-11-06] MEDS: methylPREDNISolone Sod Succ 40 MG VIAL IVP SCH ×3 (05:22→21:24)
[2019-11-06] MEDS: Cefdinir 300 MG CAP PO SCH ×2 (09:20→21:24)
[2019-11-06] MEDS: Famotidine 20 MG TAB PO SCH ×2 (09:20→21:24)
[2019-11-06] MEDS: Amlodipine 5 MG TAB PO SCH (12:22)
--- NOTE | 2019-11-06 15:42 | PDOC.HOSPP ---
- Subjective Encounter Date: 11/06/19 Encounter Time: 15:41 Subjective: Ms. Shea was seen today in follow-up of lung mass. and respiratory failure. She says she is having an anxiety attack. - Objective Vital Signs & Weight: Vital Signs (12 hours) Temp Pulse Resp BP Pulse Ox 11/06/19 15:16 98.4 F 93 18 148/71 H 93 L 11/06/19 10:53 98.1 F 99 22 H 170/83 H 91 L 11/06/19 07:35 98.5 F 90 22 H 159/75 H 96 11/06/19 07:29 86 20 Weight Admit Weight 85 lb Weight 88 lb 9.6 oz I&O: 11/05/19 11/06/19 11/07/19 06:59 06:59 06:59 Intake Total 1670 460 Balance 1670 460 Result Diagrams: 11/05/19 03:52 11/05/19 03:52 Hospitalist ROS - Medication Medications: Active Medications Generic Name Dose Route Start Last Admin Trade Name Freq PRN Reason Stop Dose Admin Acetaminophen 650 mg 10/31/19 23:49 11/05/19 16:56 Acetaminophen 325 Mg Tab PO 325 mg Q4H PRN Administration Headache/Fever/Mild Pain (1-3) Albuterol/Ipratropium 3 ml 11/01/19 17:30 11/06/19 07:29 Ipratropium/Albuterol Sulfate 3 Ml Neb NEB 3 ml WILLCALL ANAM Administration Albuterol/Ipratropium 0 gm 11/02/19 16:18 11/06/19 02:54 Ipratropium/Albuterol Sulfate 4 Gm Aer IH 1 puff Q4H PRN Administration SOB &/or Wheezing Amlodipine Besylate 5 mg 11/03/19 12:00 11/06/19 12:22 Amlodipine 5 Mg Tab PO 5 mg 1200 ANAM Administration Cefdinir 300 mg 11/04/19 21:00 11/06/19 09:20 Cefdinir 300 Mg Cap PO 300 mg BID ANAM Administration Enoxaparin Sodium 40 mg 11/01/19 21:00 11/05/19 20:36 Enoxaparin Sodium 40 Mg/0.4 Ml Syringe SC Not Given 2100 ANAM Famotidine 20 mg 11/01/19 09:00 11/06/19 09:20 Famotidine 20 Mg Tab PO 20 mg BID ANAM Administration Methylprednisolone Sodium Succinate 20 mg 11/03/19 14:00 11/06/19 12:22 Methylprednisolone Sod Succ 40 Mg Vial IVP 20 mg Q8HR ANAM Administration Nicotine 7 mg 11/01/19 03:30 11/06/19 01:08 Nicotine 7 Mg Patch TD Not Given Q24HR ANAM Ondansetron HCl 4 mg 10/31/19 23:49 11/04/19 01:02 Ondansetron Pf 4 Mg/2 Ml Vial IVP 4 mg Q6H PRN Administration Nausea/Vomiting use 1st - Exam Eye: PERRL, anicteric sclera Heart: RRR, no murmur, no gallops, no rubs, normal peripheral pulses Respiratory: CTAB Gastrointestinal: soft, non-tender, non-distended, normal bowel sounds, no palpable masses, no hepatomegaly, no splenomegaly Extremities: no cyanosis, no edema Hosp A/P (1) Acute and chronic respiratory failure Code(s): J96.20 - ACUTE AND CHR RESP FAILURE, UNSP W HYPOXIA OR HYPERCAPNIA Status: Acute (2) COPD exacerbation Code(s): J44.1 - CHRONIC OBSTRUCTIVE PULMONARY DISEASE W (ACUTE) EXACERBATION Status: Acute (3) Lung mass Code(s): R91.8 - OTHER NONSPECIFIC ABNORMAL FINDING OF LUNG FIELD Status: Acute (4) post obstructive pna Status: Acute (5) Tobacco abuse Code(s): Z72.0 - TOBACCO USE Status: Chronic (6) Hypertension Code(s): I10 - ESSENTIAL (PRIMARY) HYPERTENSION Status: Acute - Plan * Acute on chronic respiratory failure due to community acquired pneumonia- stable * [facility] * Pathology results are back and she has been found to have Non-small cell carcinoma. She was notified of the results. She wants her son present, and says that she does not want to be involved in any further discussions. * Communicated with Dr. Mota, she is not a surgical candidate- will consult Oncology * HTN- blood pressure is labile- will continue Amlodipine for now, and monitor the trend- may need to adjust the medication dose * Discharge disposition is still not clear- will discuss with her son when he arrives
--- NOTE | 2019-11-06 18:07 | PRG ---
DATE OF SERVICE: 11/06/2019 SUBJECTIVE: Ms. Shea was evaluated this afternoon. I met with her and her son. She gave me permission to talk to her son. Vital signs have been stable. This morning, she became short of breath and actually was fairly abusive towards one of the respiratory therapists because of her shortness of breath. She refused a nebulizer treatment when she became short of breath this morning per my discussion with respiratory therapist. This afternoon, she is more comfortable. She still has mild pursed lip breathing. OBJECTIVE: VITAL SIGNS: She is afebrile. Heart rate is in the 90s, respiratory rate is 18, blood pressure 148/71. LUNGS: Remarkable for faint wheezes. HEART: Regular rhythm. ABDOMEN: Soft. LABORATORY DATA: White count is 15, hemoglobin 9.5, platelets 648. Sodium 134, potassium 4, chloride 105, bicarb 22, BUN 20, creatinine 0.68. IMPRESSION: 1. Adenocarcinoma of the lung. 2. Chronic obstructive pulmonary disease. 3. Weight loss and deconditioning. She says she has lost a lot a lot of weight, but could not quantitate that for me over the last two months. She had a full Caesar salad siting next to the bed that she said she could not eat and she says she explained to her that weight loss will make treatment of her malignancy very difficult if it continues. 4. She has a reactive thrombocytosis and mild hyponatremia, likely associated with her malignancy. 5. Oncology will be consulted. 6. In my opinion, she is not a surgical candidate given that she is short of breath at rest, answered all of her questions. I asked her son to keep her written list of questions. She will come up at times when the physician or health care providers are not around. 7. She will need a nebulizer at home for breathing treatments. It is very likely she will need oxygen at home. We will continue to follow. Job ID: [id number]
[2019-11-06] MEDS: Enoxaparin Sodium 40 MG/0.4 ML SYRINGE SC SCH (21:24)
[2019-11-07] MEDS: Nicotine 7 MG PATCH TD SCH (03:53)
[2019-11-07] MEDS: Morphine 2 MG/ML VIAL SLOW IVP PRN ×2 (04:08→17:49)
[2019-11-07] MEDS: methylPREDNISolone Sod Succ 40 MG VIAL IVP SCH ×3 (05:25→22:33)
[2019-11-07] MEDS ORDERED: Lorazepam 0.5 MG TAB PO PRN (11:42)
[2019-11-07] MEDS ORDERED: Amlodipine 10 MG TAB PO SCH (13:15)
[2019-11-07] MEDS: Cefdinir 300 MG CAP PO SCH ×2 (13:59→20:30)
[2019-11-07] MEDS: Famotidine 20 MG TAB PO SCH ×2 (13:59→20:30)
[2019-11-07] MEDS: Amlodipine 5 MG TAB PO SCH (15:04)
--- NOTE | 2019-11-07 16:04 | CON ---
DATE OF CONSULTATION: REASON FOR CONSULTATION: Lung cancer. HISTORY OF PRESENT ILLNESS: Ms. Shea is a 69-year-old female, who recently moved to this area and was brought to the emergency room on October 30 for weight loss, fatigue, and cough. She does have a history of smoking. She underwent a brain CT, which was negative. She had a chest, abdomen, and pelvis CT. There was a right infrahilar mass measuring 3.2 x 5.1 x 6.5 cm. There was confluent right hilar adenopathy. She had hilar and subcarinal adenopathy. There was a [id number] right malignant pleural effusion, a small pericardial effusion. She had a 3.4 cm left adrenal mass and numerous liver hypodensities suspicious for metastatic disease. She underwent bronchoscopy. Pathology returned adenocarcinoma. The patient has been on IV antibiotics and steroids, receiving neb treatments. According to the nurse, she has been noncompliant with her treatment here in the hospital. The patient was seen at bedside with her son present. He states that she has always been skinny, but has lost more weight. She has a poor appetite, which she states due to being unable to breathe. She continues to smoke half a pack of cigarettes daily. She denies any chest pain, hemoptysis, abdominal discomfort. PAST MEDICAL HISTORY: 1. COPD. 2. Anxiety. 3. Tobacco use. PAST SURGICAL HISTORY: 1. Lumpectomy. 2. Tubal ligation. ALLERGIES: NO KNOWN DRUG ALLERGIES. CURRENT MEDICATIONS: 1. [place]. 2. Combivent. 3. Norvasc. 4. Omnicef. 5. Catapres. 6. Lovenox. 7. Pepcid. 8. Robitussin DM. 9. Ativan. 10. Solu-Medrol. 11. Nicoderm patch. FAMILY HISTORY: Noncontributory. SOCIAL HISTORY: . Lives alone in an apartment. Every day smoker. No alcohol or illicit drug use. REVIEW OF SYSTEMS: A 10-point review of systems is negative except for noted in HPI. PHYSICAL EXAMINATION: VITAL SIGNS: Temperature is 98.5, pulse is 88, respiratory rate is 22, BP is 180/86, O2 sats 94% on 3 L. GENERAL: This is a frail female, in no acute distress. HEENT: Normocephalic, atraumatic. Pupils are equal and reactive to light. NECK: Supple. CV: Regular rate and rhythm. LUNGS: She has wheezes throughout. GI: Abdomen is soft and nontender. Bowel sounds are positive. EXTREMITIES: She has 2+ bilateral lower extremity edema. SKIN: No rash. HEMATOLOGICAL: She has scattered bruising on her arms. NEUROLOGICAL: Nonfocal. PSYCH: She is alert, oriented, and appropriate. PERTINENT LABORATORY DATA AND X-RAYS: Current WBCs are 15, hemoglobin 9.5, hematocrit 30.3, platelet count 648,000, she has 90% neutrophils, 4% lymphs. Sodium 134, potassium 4.0, chloride 105, CO2 is 22, BUN is 20, creatinine 0.68. Lactic acid 1.6. Calcium 8, magnesium 2.1, bilirubin 0.5, AST is 14, ALT is 7, and alkaline phosphatase is 110, creatine kinase is 19, troponin 0.029. BNP is 253. Serum total protein is 5.9, albumin 2.5, globulin 3.2, lipase 12. COVID-19 negative. Radiology per history of present illness. ASSESSMENT: 1. 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 2. Chronic obstructive pulmonary disease. 3. Severe deconditioning. 4. Reactive thrombocytosis. DISCUSSION: The case has been discussed with Dr. Mota. The patient was seen at bedside with her son present. We discussed that she has stage IV disease with liver metastasis. We discussed that typical treatment would include chemo- immunotherapy. The patient understands that she has noncurable disease and all treatment will be palliative. We discussed that she has deconditioning and poor appetite. Appetite could be managed with medications, although she says she cannot breathe and that is why she does not eat. She currently lives alone and discussions regarding discharge and placement are being made. Family understands that she is a poor candidate for treatment and unlikely to tolerate chemo. They are considering hospice which is a reasonable choice. Palliative Care is on the case and we will be available to answer any questions. They were given our clinic information should they wish to meet with a MD and discuss further. Thank you for the consult. Job ID: [id number] [id number]
--- NOTE | 2019-11-07 16:23 | PDOC.HOSPP ---
- Subjective Encounter Date: 11/07/19 Encounter Time: 16:21 Subjective: Ms. Shea was seen today in follow-up of non-snall evelin cancer of the lung. She does not have any complaints. - Objective Vital Signs & Weight: Vital Signs (12 hours) Temp Pulse Resp BP BP Pulse Ox 11/07/19 14:40 88 22 H 11/07/19 13:48 180/86 H 11/07/19 11:15 98.5 F 90 18 137/64 94 L 11/07/19 08:35 98.1 F 82 16 161/75 H 96 11/07/19 06:05 168/80 H 11/07/19 04:24 98.4 F 104 H 20 188/76 H 92 L Weight Admit Weight 85 lb Weight 88 lb 5.957 oz I&O: 11/06/19 11/07/19 11/08/19 06:59 06:59 06:59 Intake Total 460 700 Output Total 100 Balance 460 600 Result Diagrams: 11/05/19 03:52 11/05/19 03:52 Hospitalist ROS - Medication Medications: Active Medications Generic Name Dose Route Start Last Admin Trade Name Freq PRN Reason Stop Dose Admin Acetaminophen 650 mg 10/31/19 23:49 11/05/19 16:56 Acetaminophen 325 Mg Tab PO 325 mg Q4H PRN Administration Headache/Fever/Mild Pain (1-3) Albuterol/Ipratropium 3 ml 11/01/19 17:30 11/07/19 14:40 Ipratropium/Albuterol Sulfate 3 Ml Neb NEB 3 ml WILLCALL ANAM Administration Albuterol/Ipratropium 0 gm 11/02/19 16:18 11/06/19 02:54 Ipratropium/Albuterol Sulfate 4 Gm Aer IH 1 puff Q4H PRN Administration SOB &/or Wheezing Cefdinir 300 mg 11/04/19 21:00 11/07/19 13:59 Cefdinir 300 Mg Cap PO Not Given BID ANAM Clonidine 0.1 mg 10/31/19 23:49 11/06/19 21:43 Clonidine 0.1 Mg Tab PO 0.1 mg BID PRN Administration SBP > 160 use second Enoxaparin Sodium 40 mg 11/01/19 21:00 11/06/19 21:24 Enoxaparin Sodium 40 Mg/0.4 Ml Syringe SC 40 mg 2100 ANAM Administration Famotidine 20 mg 11/01/19 09:00 11/07/19 13:59 Famotidine 20 Mg Tab PO Not Given BID ANAM Methylprednisolone Sodium Succinate 20 mg 11/03/19 14:00 11/07/19 13:46 Methylprednisolone Sod Succ 40 Mg Vial IVP 20 mg Q8HR ANAM Administration Morphine Sulfate 2 mg 10/31/19 23:49 11/07/19 04:08 Morphine 2 Mg/Ml Vial SLOW IVP 2 mg Q4H PRN Administration severe pain 4-10 Nicotine 7 mg 11/01/19 03:30 11/07/19 03:53 Nicotine 7 Mg Patch TD Not Given Q24HR ANAM Ondansetron HCl 4 mg 10/31/19 23:49 11/04/19 01:02 Ondansetron Pf 4 Mg/2 Ml Vial IVP 4 mg Q6H PRN Administration Nausea/Vomiting use 1st - Exam Eye: PERRL, anicteric sclera Heart: RRR, no murmur, no gallops, no rubs, normal peripheral pulses Respiratory: CTAB, no wheezes, no rales, no ronchi, normal chest expansion, no tachypnea Gastrointestinal: soft, non-tender, non-distended, normal bowel sounds, no palpable masses, no hepatomegaly Extremities: no cyanosis, no edema Hosp A/P (1) Acute and chronic respiratory failure Code(s): J96.20 - ACUTE AND CHR RESP FAILURE, UNSP W HYPOXIA OR HYPERCAPNIA S tatus: Acute (2) COPD exacerbation Code(s): J44.1 - CHRONIC OBSTRUCTIVE PULMONARY DISEASE W (ACUTE) EXACERBATION Status: Acute (3) Lung mass Code(s): R91.8 - OTHER NONSPECIFIC ABNORMAL FINDING OF LUNG FIELD Status: Acute (4) post obstructive pna Status: Acute (5) Tobacco abuse Code(s): Z72.0 - TOBACCO USE Status: Chronic (6) Hypertension Code(s): I10 - ESSENTIAL (PRIMARY) HYPERTENSION Status: Acute - Plan * Acute on chronic respiratory failure due to community acquired pneumonia- stable * continue Omnicef * Adenocarcinoma of the lung- She has been seen by Oncology- she does not want treatment- She would like Hospice- will get a Hospice Consult so she and the family can assess what services are available
--- NOTE | 2019-11-07 16:49 | PDOC.FMACP ---
Advance Care Planning - Problem (1) Declining functional status Status: Acute Code(s): R53.81 - OTHER MALAISE (2) Palliative care encounter Status: Acute Code(s): Z51.5 - ENCOUNTER FOR PALLIATIVE CARE (3) Lung mass Status: Acute Code(s): R91.8 - OTHER NONSPECIFIC ABNORMAL FINDING OF LUNG FIELD (4) COPD (chronic obstructive pulmonary disease) Status: Chronic Qualifiers: COPD type: chronic bronchitis (5) Chronic anemia Status: Chronic Code(s): D64.9 - ANEMIA, UNSPECIFIED (6) Tobacco abuse Status: Chronic Code(s): Z72.0 - TOBACCO USE - Note Participants: patient, family, palliative care Summary: Palliative Care initiated conversation related to Advanced Care Planning previously. Followed up today to complete documents. The diagnosis, prognosis and goals of care were discussed. Appropriate forms and documentation to accomplish the goals of care were discussed. All questions were answered. Ms Shea elected to complete MPOA confirming her son as MPOA and his as alternate if needed. She also completed the OOHDNAR. Original given to patient with copy, also placed on chart for medical records. Please also refer to Palliative Care notes in note section. Time Spent (mins): 15
--- NOTE | 2019-11-07 16:53 | PDOC.PALPN ---
Palliative Progress Note - Subjective O2 via Nasal cannula, shortness of breath with no exertion. - Objective Vital Signs: Vital Signs - Most Recent Temp Pulse Resp BP Pulse Ox 98.7 F 95 22 H 169/70 H 88 L 11/07/19 16:22 11/07/19 16:22 11/07/19 16:22 11/07/19 16:22 11/07/19 16:22 - Physical Exam Constitutional: cachectic, emaciated, ill appearing, mild distress HEENT: EOMI, moist MMs, sclera anicteric Respiratory: diminished lung sound, labored respirations, wheezing present Cardiovascular: RRR Gastrointestinal: soft, non-tender, positive bowel sounds Genitourinary: incontinent Musculoskeletal: diffuse muscle atrophy Neurology: moves all 4 limbs, no focal deficits Skin: bruising, fragile Psychiatric: A&O x 3, depressed Deviation from normal: anxious - Assessment (1) Declining functional status Code(s): R53.81 - OTHER MALAISE Current Visit: Yes Status: Acute (2) Palliative care encounter Code(s): Z51.5 - ENCOUNTER FOR PALLIATIVE CARE Current Visit: Yes Status: Acute (3) Lung mass Code(s): R91.8 - OTHER NONSPECIFIC ABNORMAL FINDING OF LUNG FIELD Current Visit: Yes Status: Acute (4) COPD (chronic obstructive pulmonary disease) Current Visit: Yes Status: Chronic Qualifiers: COPD type: chronic bronchitis (5) Chronic anemia Code(s): D64.9 - ANEMIA, UNSPECIFIED Current Visit: Yes Status: Chronic (6) Tobacco abuse Code(s): Z72.0 - TOBACCO USE Current Visit: Yes Status: Chronic - Plan Plan Attempted to discuss symptom management. Reviewed use of Morphine or ativan IVP for anxiety or shortness of breath. Patient has been refusing medications for symptom management as well as therapies. Discharge plan still unknown, Son Mehran to arrive today and will further discuss. He has previously stated that she can not come live with him, she is reluctant to return to home setting however secondary to physical deconditioning and progressive cancer independent living is not a safe discharge plan. She will require assistance with all ADL, and most likely supplemental O2, breathing treatments, and assistance with medication to manage symptoms. She is frustrated, and overwhelmed with loosing independence. Palliative Care will continue to offer support and assistance with Goal of Care. [35] minutes spent on this encounter with >50% of the time in counseling and coordination of care. - ROS Constitutional: alert, weakness ENT: dry mouth Respiratory: shortness of breath with extertion Psychological: anxiety, restless
[2019-11-07] MEDS: Enoxaparin Sodium 40 MG/0.4 ML SYRINGE SC SCH (20:31)
[2019-11-08] MEDS: Nicotine 7 MG PATCH TD SCH (03:24)
[2019-11-08] MEDS: methylPREDNISolone Sod Succ 40 MG VIAL IVP SCH (05:26)
[2019-11-08] MEDS ORDERED: Calcium Carbonate 500 MG ChewTAB PO PRN (08:47)
[2019-11-08] MEDS: Famotidine 20 MG TAB PO SCH ×2 (09:31→20:10)
[2019-11-08] MEDS: Cefdinir 300 MG CAP PO SCH ×2 (09:32→20:10)
--- NOTE | 2019-11-08 11:55 | PDOC.HOSPP ---
- Subjective Encounter Date: 11/08/19 Encounter Time: 11:53 Subjective: Ms. Shea was seen today in follow-up of Adenocarcinoma of the lings. she notes some dyspnea. - Objective Vital Signs & Weight: Vital Signs (12 hours) Temp Pulse Resp BP Pulse Ox 11/08/19 04:00 97.9 F 79 20 134/63 96 11/08/19 00:00 83 Weight Admit Weight 85 lb Weight 85 lb 1.6 oz I&O: 11/07/19 11/08/19 11/09/19 06:59 06:59 06:59 Intake Total 700 590 Output Total 100 1375 Balance 600 -785 Result Diagrams: 11/05/19 03:52 11/05/19 03:52 Hospitalist ROS - Medication Medications: Active Medications Generic Name Dose Route Start Last Admin Trade Name Freq PRN Reason Stop Dose Admin Acetaminophen 650 mg 10/31/19 23:49 11/05/19 16:56 Acetaminophen 325 Mg Tab PO 325 mg Q4H PRN Administration Headache/Fever/Mild Pain (1-3) Albuterol/Ipratropium 0 gm 11/02/19 16:18 11/06/19 02:54 Ipratropium/Albuterol Sulfate 4 Gm Aer IH 1 puff Q4H PRN Administration SOB &/or Wheezing Cefdinir 300 mg 11/04/19 21:00 11/08/19 09:32 Cefdinir 300 Mg Cap PO 300 mg BID ANAM Administration Clonidine 0.1 mg 10/31/19 23:49 11/06/19 21:43 Clonidine 0.1 Mg Tab PO 0.1 mg BID PRN Administration SBP > 160 use second Enoxaparin Sodium 40 mg 11/01/19 21:00 11/07/19 20:31 Enoxaparin Sodium 40 Mg/0.4 Ml Syringe SC 40 mg 2100 ANAM Administration Famotidine 20 mg 11/01/19 09:00 11/08/19 09:31 Famotidine 20 Mg Tab PO 20 mg BID ANAM Administration Methylprednisolone Sodium Succinate 20 mg 11/03/19 14:00 11/08/19 05:26 Methylprednisolone Sod Succ 40 Mg Vial IVP 20 mg Q8HR ANAM Administration Morphine Sulfate 2 mg 10/31/19 23:49 11/07/19 17:49 Morphine 2 Mg/Ml Vial SLOW IVP 2 mg Q4H PRN Administration severe pain 4-10 Nicotine 7 mg 11/01/19 03:30 11/08/19 03:24 Nicotine 7 Mg Patch TD Not Given Q24HR [facility] Ondansetron HCl 4 mg 10/31/19 23:49 11/04/19 01:02 Ondansetron Pf 4 Mg/2 Ml Vial IVP 4 mg Q6H PRN Administration Nausea/Vomiting use 1st - Exam Eye: PERRL, anicteric sclera Heart: RRR, no murmur, no gallops, no rubs, normal peripheral pulses Respiratory: CTAB (very faint wheezing, no rales or rhonchi) Gastrointestinal: soft, non-tender, non-distended, normal bowel sounds, no palpable masses, no hepatomegaly Extremities: no cyanosis, 1+ LE edema (trace pedal and upper extremity edema) Hosp A/P (1) Acute and chronic respiratory failure Code(s): J96.20 - ACUTE AND CHR RESP FAILURE, UNSP W HYPOXIA OR HYPERCAPNIA Status: Acute (2) COPD exacerbation Code(s): J44.1 - CHRONIC OBSTRUCTIVE PULMONARY DISEASE W (ACUTE) EXACERBATION Status: Acute (3) Lung mass Code(s): R91.8 - OTHER NONSPECIFIC ABNORMAL FINDING OF LUNG FIELD Status: Acute (4) post obstructive pna Status: Acute (5) Tobacco abuse Code(s): Z72.0 - TOBACCO USE Status: Chronic (6) Hypertension Code(s): I10 - ESSENTIAL (PRIMARY) HYPERTENSION Status: Acute - Plan * Acute on chronic respiratory failure due to community acquired pneumonia- stable * continue Omnicef * Will transition to oral steroids * Adenocarcinoma of the lung-she has decided on Hospice care- likely in a Residential setting
[2019-11-08] MEDS ORDERED: Amlodipine 10 MG TAB PO SCH (12:00)
[2019-11-08] MEDS ORDERED: predniSONE 20 MG TAB PO SCH ×2 (12:15→13:00)
[2019-11-08 13:06] VITALS: BMI 16.0
--- NOTE | 2019-11-08 13:20 | PQF ---
CLINICAL DOCUMENTATION CLARIFICATION FORM: Dear Dr. Zaragoza Date: 11/08/19 Please exercise your independent, professional judgment in responding to the clarification form. Clinical indicators are provided on the bottom of this form for your review. Please check appropriate box(es) to clarify if the following diagnosis has been ruled in our ruled out: SEPSIS [ X] Ruled in diagnosis [ ] Continue to treat [ ] Resolved [ ] Ruled out diagnosis [ ] Improving [ ] Cannot rule out diagnosis [ ] Other diagnosis [ ] Unable to determine In addition, please specify: Present on Admission (POA): [X ] Yes [ ] No [ ] Unable to determine For continuity of documentation, please document condition throughout progress notes and discharge summary. Thank You. CLINICAL INDICATORS - SIGNS / SYMPTOMS / LABS / RESULTS AND LOCATION IN MR ER NOTE: "SEPSIS" H&P (ATERNO): "SEPSIS" WBC 10/30: 15.4 RR 24 RISKS: PNEUMONIA (H&P) TREATMENT: IV VANCOMYCIN (ER) IV LEVAQUIN (ER) IV CEFEPIME (ER) IV FLUIDS (ER) OMNICEF (STARTED 11/03) IV ROCEPHIN (10/31) BLOOD AND RESPIRATORY CULTURES 10/30, 11/01 CDS Signature: Alyce Hanley RN Phone #: [phone] Date: 11/08/19 WINNIE
--- NOTE | 2019-11-08 13:37 | PQF ---
CLINICAL DOCUMENTATION CLARIFICATION FORM: Dear Dr. Zaragoza Date: 11/08/19 Please exercise your independent, professional judgment in responding to the clarification form. Clinical indicators are provided on the bottom of this form for your review. Please check appropriate box(es): [X ] Protein Calorie Malnutrition: [ ] Mild [ X ] Moderate [ ] Severe [ ] Other Malnutrition (please specify) [ ] Underweight without malnutrition [ ] Cachexia [ ] Other diagnosis [ ] Unable to determine In addition, please specify: Present on Admission (POA): [ X ] Yes [ ] No [ ] Unable to determine For continuity of documentation, please document condition throughout progress notes and discharge summary. Thank You. CLINICAL INDICATORS - SIGNS / SYMPTOMS / LABS / RESULTS AND LOCATION IN MR DIETARY ASSESSMENT 11/04: "PATIENT REPORT OF VERY LIMITED PO INTAKE FOR 5-6 DAYS [employer]INE[employer] MEETING <25% OF ESTIMATED NEEDS, MILD MUSCLE WASTING OBSERVED SUGGESTIVE OF MODERATE MALNUTRITION." BMI 16.1 RISKS: ADENOCARCINOMA OF LUNGS (PN 10/) PNEUMONIA (PN 10) COPD (PN 11/07) TREATMENT: DIETARY SUPPLEMENTS RECOMMENDED (DIETARY ASSESSMENT 11/04) Moderate Malnutrition (in acute illness) Energy Intake: <75% of estimated energy requirement for > 7 days Weight Loss: 1-2%/1 week; 5%/ 1 month; 7.5%/3 months Other: mild body fat loss; mild muscle mass loss; mild fluid accumulation; Severe Malnutrition (in acute illness) Energy Intake: = 50% of estimated energy requirement for = 5 days Weight Loss: >2%/1 week; >5%/1 month; >7.5%/3 months Other: moderate body fat loss; moderate muscle mass loss; moderate- severe fluid accumulation; 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 Moderate Malnutrition (in chronic illness) Energy Intake: <75% of estimated energy requirement for =1 month Weight Loss: 5%/1 month; 7.5%/3 months; 10%/6 months; 20%/1 year Other: mild body fat loss; mild muscle mass loss; mild fluid accumulation Severe Malnutrition (in chronic illness) Energy Intake: =75% of estimated energy requirement for =1 month Weight Loss: >5%/1 month; >7.5%/3 months; >10%/6 months; >20%/1 year Other: severe body fat loss; severe muscle mass loss; severe fluid accumulation; 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
[2019-11-08] MEDS ORDERED: Morphine 10 MG/0.5 ML ORAL SYRINGE SL PRN (14:51)
[2019-11-08] MEDS: Enoxaparin Sodium 40 MG/0.4 ML SYRINGE SC SCH (20:10)
[2019-11-08 23:02] VITALS: BP 145/69; TEMP 98.1
--- NOTE | 2019-11-09 02:32 | DIS ---
DATE OF ADMISSION: 10/31/2019 DATE OF DISCHARGE: 11/08/2019 DISCHARGE DISPOSITION: Hospice [facility]. DISCHARGE DIAGNOSES: 1. Non-small cell carcinoma. 2. Newly diagnosed hypertension. 3. Chronic obstructive pulmonary disease. 4. Moderate protein-calorie malnutrition. PROCEDURES DONE DURING THE ADMISSION: The patient had a bronchoscopy with biopsy. The biopsy of which demonstrated non-small cell carcinoma, most consistent with adenocarcinoma. CODE STATUS: DNAR. ALLERGIES: NO KNOWN DRUG ALLERGIES. HOSPITAL COURSE: Ms. Shea is a pleasant 69-year-old female, who was admitted to the hospital with complaints of shortness of breath and cough. She also noted a change in her taste and smell. She was noted to have an opacity in the right lung as well as bilateral pleural effusions. This was followed up with a CT scan of the chest, which demonstrated a large right infrahilar mass with subcarinal adenopathy and evidence of postobstructive pneumonitis in the right lung. The pathology was sent for analysis and the patient was found to have a non-small cell lung cancer consistent with adenocarcinoma of the lung. She had a CT scan done on admission of the abdomen and pelvis, which showed that there was a metastatic disease in the liver as well as adrenal gland. She had also had a CT scan of the brain done prior to the diagnosis being determined, which was negative for any intracranial mass. Therefore, she had essentially had a staging procedure done prior to the diagnosis being evident. She was seen by the oncology team once the pathology was determined and the patient decided not to undergo any type of chemotherapy and preferred to go on hospice care. This was done in consultation with the patient's son and other family members. Once arrangements were made for hospice, she was able to be transferred to inpatient hospice on 11/08/2019. Job ID: [id number]
[2019-11-09] MEDS ORDERED: predniSONE 20 MG TAB PO SCH (08:00)
== END 2019-11-08 22:38 | disposition hospice, inpatient (51) | DRG 871 ==
LOC: ERS 20:09 → ERHOLD 23:10 → 2NO 11-01 01:57 → 2SW 11-06 10:39 → 2NO 11-06 18:55
PROVIDERS: ADMIT Internal Medicine; ATTEND Internal Medicine
PROC: 0BDD8ZX Extraction of Right Middle Lung Lobe, Via Natural or Artificial Opening Endoscopic, Diagnostic (ICD-10-PCS; principal; 2019-11-02)
PROC: 0B9D8ZX Drainage of Right Middle Lung Lobe, Via Natural or Artificial Opening Endoscopic, Diagnostic (ICD-10-PCS; 2019-11-02)
DX: A41.9 Sepsis, unspecified organism (principal); J18.8 Other pneumonia, unspecified organism; J96.20 Acute and chronic respiratory failure, unspecified whether with hypoxia or hypercapnia; E44.0 Moderate protein-calorie malnutrition; Z68.1 Body mass index [BMI] 19.9 or less, adult; C34.01 Malignant neoplasm of right main bronchus; R64 Cachexia; J44.0 Chronic obstructive pulmonary disease with (acute) lower respiratory infection; J44.1 Chronic obstructive pulmonary disease with (acute) exacerbation; C78.7 Secondary malignant neoplasm of liver and intrahepatic bile duct; C79.70 Secondary malignant neoplasm of unspecified adrenal gland; Z66 Do not resuscitate; Z51.5 Encounter for palliative care; Z20.828 Contact with and (suspected) exposure to other viral communicable diseases; F41.9 Anxiety disorder, unspecified; F17.210 Nicotine dependence, cigarettes, uncomplicated; R79.89 Other specified abnormal findings of blood chemistry; E87.6 Hypokalemia; E83.42 Hypomagnesemia; D64.9 Anemia, unspecified; M17.10 Unilateral primary osteoarthritis, unspecified knee; D47.3 Essential (hemorrhagic) thrombocythemia; Z98.51 Tubal ligation status; Z91.19 Patient's noncompliance with other medical treatment and regimen
CPT/HCPCS: 36415; 70450; 71045; 71260; 74177; 80048; 80053; 82550; 82553; 83605; 83690; 83735; 83880; 84484; 85025; 87040; 87070; 87102; 87116; 87205; 87206; 87635; 88104; 88112; 88305; 93005; 94640; 96361; 96365; 96367; J0171; J0456; J0692; J0696; J1100; J1642; J1650; J1956; J2270; J2405; J2704; J2920; J3010; J3475; J3490; J7050; J7620; Q9967; U0002; U0003